=== PATIENT | female | born 1955 | race Caucasian/White ===

== ENCOUNTER 2019-10-07 16:30 | Outpatient (CLI) | payer OTHER ==
--- NOTE | 2019-10-07 22:33 | Diagnostic Imaging Report ---
PATIENT MR#: [id number] PATIENT PATIENT NAME: ROSY RANDALL DATE OF : 1955 REFERRING PHYSICIAN: Gianluca Kearney EXAM DATE: 10/07/2019 ACCESSION NUMBER: [id number] EXAM DESCRIPTION: LT HIP 2VIEW COMPLETE CLINICAL HISTORY: LEFT HIP PAIN X 3 MONTHS COMPARISON: No study for comparison is available at the time of interpretation. TECHNIQUE: DX left hip, 2 views Osseous structures: There is a small detached osteophyte of the acetabular rim. Joint spaces: Mild irregularity of the acetabular articular surface. Soft tissues: There is normal appearance of the soft tissues with no radiopaque foreign body seen. IMPRESSION: Mild-moderate left hip arthrosis with small detached osteophyte of the acetabular rim, wh ich may indicate the presence of labral tear. Read by: Dr. Deni Lincoln Transcribed by: Deni Lincoln Transcribed Date: 10/07/2019 10:32:11 PM Electronically signed by: Dr. Deni Lincoln Date signed: 10/07/2019 10:32:11 PM
== END 2019-10-07 16:35 ==
LOC: RAD 16:30
PROVIDERS: ATTEND Family Medicine
DX: M25.552 Pain in left hip (principal)